=== PATIENT | male | born 1985 | race Caucasian/White ===

== ENCOUNTER 2022-09-06 12:29 | Emergency (ER) | payer OTHER, SELFPAY ==
[2022-09-06 13:05] VITALS: BP 139/85; PULSE 95; RESP 18; O2SAT 96
--- NOTE | 2022-09-06 13:53 | ED_ITS ---
HISTORY OF PRESENT ILLNESS Grey is a 37-year-old male coming in with complaint of some chest tightness. ?He was getting in the shower about 10:45 a.m. this morning and was going to go golfing. ?He had onset of sudden dizziness, nausea, and his Apple watch alerted him to the fact that his heart rate was 140s and went quickly to the 40s shortly after that. ?He developed a headache with that. ?He has ongoing left chest tightness and some left shoulder pain. ?When it first happened, he had more severe pain in the left shoulder blade area. ?He notes he has been having chest pain for a while, but it would be quick and go away. ?He notes his Apple watch alerted him to a few weeks ago when his heart rate resting was 159. ?He has no prior history of any cardiac or respiratory issues. ?He is smoking. ?He quit drinking about 6 months ago. ?He states there were not really any issues, but is planning on getting and having kids and feels that he just does not have time for it. ?He has a family history of a grandfather with a pacemaker later in life. ?He is not aware of anyone with any aneurysm, CVA or WA. ALLERGIES No known drug allergies. MEDICATIONS Adderall 15 mg daily. The patient did take 2 Luanne Aspirin this morning, full strength, when this started to happen. PAST HISTORY Significant for adult ADHD, history of kidney stones. REVIEW OF SYSTEM Did have some nausea, but unless noted above, otherwise negative for HEENT, pulmonary, cardiovascular, GI, , musculoskeletal, and psychiatric. PHYSICAL EXAM VITAL SIGNS: ?Blood pressure 139/85, pulse ox 96% on room air. ? GENERAL: ?Alert, interactive, no apparent distress. ? HEENT: ?Pupils equal, round, reactive to light. ?Sclerae clear. ?Extraocular muscles intact. ?Face atraumatic. ?Able to speak in complete sentences, no hoarseness. NECK: ?Supple. ?No cervical adenopathy. ?No thyromegaly, masses, or nodules. LUNGS: ?Clear, good air entry. ?No wheezing or crackles. CV: ?Regular rate and rhythm. ?No murmur. ?Normal S1, S2. ?No S3, S4. ?No chest wall tenderness. ABDOMEN: ?Soft. ?No rebound or guarding. ?No organomegaly. ? EXTREMITIES: ?No lower extremity edema. TEST RESULTS EKG on arrival is showing normal sinus rhythm, early repolarization, QT corrected 422 milliseconds. ?No ischemic change. EMERGENCY ROOM COURSE He will be on cardiac monitoring and pulse oximetry for ongoing monitoring for arrhythmia and potential ischemic change here. ?We will get a portable chest x- ray. ?We will get basic labs for cardiac, CBC, comprehensive metabolic panel and D-dimer. ?It certainly sounds with his Apple watch that he may be having some tachycardic-type rhythm disturbances but have reviewed with him that the monitoring on the watches is certainly not 100%. ?If we are not finding anything here today in looking at cardiopulmonary, possible thromboembolic disease such as PE, we will have suggestions for outpatient monitoring for ongoing evaluation of possible arrhythmia. ?He does understand that. ?He is currently hemodynamically stable. Dictated Date: 09/06/2022 13:53:14 CDT Internal Job ID: [id number] ADDENDUM Recheck on patient at 3:09 p.m. reveals he still has not had his portable chest x-ray due to the back up in the ER. ?He understands that it will happen. ?I have reviewed with him that his initial troponin is negative. ?We will get his second one and this one will be approximately a little over 4 hours after the onset of his symptoms. ?We will repeat EKG is well. LABS Both point of care troponins are normal, CBC, comprehensive metabolic panel, and D-dimer are normal. Repeat EKG timed 3:09 p.m. shows normal sinus rhythm, early repolarization, 80 beats per minute, QT corrected 424 milliseconds. ?No ischemic change. The patient did tell me that his mom revealed that 2 of his sisters have POTS. ?That certainly is a possibility, no evidence of arrhythmia or orthostatic hypotension here. ?He does note occasionally at home he has had problems standing up and feeling dizzy. ?At this time he is safe for discharge to home with further outpatient evaluation and followup. ? ASSESSMENT A 37-year-old male with episode of elevated heart rate and some chest heaviness. PLAN Would have him follow up with his primary care provider, have a Holter or ZIO patch placed for further evaluation of potential arrhythmia. ?May need to see Cardiology if this is potentially related to his sister's diagnoses of POTS. ?At this time, he is stable. If recurrent or concerning symptoms, seek re- evaluation. Dictated Date: 09/06/2022 15:57:52 CDT Internal Job ID: [id number]
[2022-09-06 14:52] LABS: Hematocrit 49.2 % (37.0-53.0); Hemoglobin* 16.8 gm/dL (13.5-17.5); Mean Corpuscular HGB Conc 34 gm/dL (32-36); Mean Corpuscular Hemoglobin 31 pg (26-34); Mean Corpuscular Volume 90 fL (80-100); Red Blood Count 5.44 m/uL (4.30-5.90); White Blood Count* 10.16 K/uL (4.50-11.00)
[2022-09-06 14:53] LABS: Basophils Percent Auto 0.3 % (0.0-3.0); Eosinophils Percent Auto 0.9 % (0.0-7.0); Immature Granulocytes Pct Auto 0.2 %; Lymphocytes Percent Auto 21.9 % (20-44); Monocytes Percent Auto 5.9 % (0.0-11.0); Neutrophils Percent Auto 70.8 % (42.0-72.0); Platelet Count* 226 K/uL (140-440); Slide Review Reflex No
[2022-09-06 14:55] LABS: Potassium* 3.7 mmol/L (3.6-5.1); Sodium* 137 mmol/L (135-149)
[2022-09-06 14:56] LABS: Blood Urea Nitrogen* 16 mg/dL (5-24); Calcium* 9.9 mg/dL (8.4-10.6); Carbon Dioxide* 24 mmol/L (20-32); Chloride* 105 mmol/L (96-114); Creatinine* 0.8 mg/dL (0.5-1.5); Estimated Glomerular Filt Rate 117 ml/min; Glucose* 102 mg/dL (60-115); Total Protein* 7.4 g/dL (6.0-8.3)
[2022-09-06 14:57] LABS: Alanine Aminotransferase* 37 U/L (4-50); Albumin* 4.7 g/dL (3.3-5.0); Alkaline Phosphatase* 60 U/L (40-150); Aspartate Amino Transferase* 31 U/L (12-35); Bilirubin Total* 0.5 mg/dL (0.1-1.5)
[2022-09-06 15:10] VITALS: BP 134/94; PULSE 90; RESP 13; O2SAT 96
[2022-09-06 15:15] LABS: D Dimer Quantitative* < 0.27 ug/ml (0.00-0.50)
--- NOTE | 2022-09-06 15:55 | CRLHL7_ITS ---
For Patients: As a result of the Century Cures Act, medical imaging exams and procedure reports are released immediately into your electronic medical record. You may view this report before your referring provider. If you have questions, please contact your health care provider. INDICATION: Chest pain. TECHNIQUE: Chest 1 views. COMPARISON: None. FINDINGS: Cardiovasculature and mediastinum: Heart size and vasculature are normal in caliber and appearance. Lungs and pleural spaces: Lungs are clear. No sign of infiltrate or mass. No sign of pleural effusion. No pneumothorax. Bones and soft tissues: No significant findings. IMPRESSION: No acute or significant findings. Dictated by Richar Joel MD @ 09/06/2022 4:44:18 PM (Electronically Signed)
[2022-09-27 15:46] LABS: Troponin, Point-of-Care* 0.01 ng/ml (0.01-0.04)
== END 2022-09-06 16:27 | disposition home or self-care (01) ==
LOC: ED 14:57
PROVIDERS: Emergency Provider Family Medicine
DX: R07.9 Chest pain, unspecified (principal); R00.0 Tachycardia, unspecified
CPT/HCPCS: 36415; 71045; 80048; 80053; 84484; 85025; 85379; 93005; 99284

== ENCOUNTER 2022-09-22 09:28 | Outpatient (CLI) | payer OTHER, SELFPAY | END 2022-09-22 09:29 | disposition home or self-care (01) | LOC: NFLDREF 09-23 17:43 | PROVIDERS: PCP Physician Assistant Medical; Referring Provider Physician Assistant Medical; Visit Provider Physician Assistant Medical | DX: F41.9 Anxiety disorder, unspecified (principal) | CPT/HCPCS: 84443 ==

== ENCOUNTER 2022-10-19 20:57 | Outpatient (CLI) | payer OTHER, SELFPAY ==
--- NOTE | 2022-10-26 10:29 | W.PM.SLEEP ---
Sleep Study Details Details Interpreting Provider: Aide Date of Sleep Study: 10/19/22 Sleep Study Details: STUDY TYPE:? Hospital-based without CPAP titration ? BMI:? 28.3 ORDERING PROVIDER:Adelaida Gonzalez INDICATION:? Concerns about sleep apnea ? SLEEP SUMMARY:? Total sleep time 221.5 minutes, efficiency 61, arousal index 20.9 RESPIRATORY SUMMARY:? Mean oxygen awake 93 asleep 93 minimum 88 AHI 2.4, RDI 8.9 supine AHI 4.4, supine RDI 14.1, supine REM AHI 0 Nonsupine AHI 0 nonsupine RDI is 2.4 PERIODIC LIMB MOVEMENTS OF SLEEP:? None were noted CARDIAC:? Awake 81 asleep 78, no arrhythmias noted IMPRESSION:? The overall AHI is within normal limits but the RDI is elevated 8.9. This could be considered mild obstructive sleep apnea with significant supine position dependency. RECOMMENDATION: If the patient is symptomatic treatment options could consist of avoidance of supine sleep, AutoSet CPAP, or dental appliance.
== END 2022-10-19 20:58 | disposition home or self-care (01) ==
LOC: SLEEP 20:58
PROVIDERS: PCP Physician Assistant Medical; Visit Provider Physician Assistant Medical
DX: G47.33 Obstructive sleep apnea (adult) (pediatric) (principal)
CPT/HCPCS: 95810; A9270

== ENCOUNTER 2023-03-20 18:51 | Emergency (ER) | payer OTHER, SELFPAY ==
[2023-03-20 18:54] VITALS: BP 111/75; PULSE 108; RESP 16; TEMP 36.1; O2SAT 95; BMI 29.0
--- NOTE | 2023-03-20 18:58 | ED_ITS ---
HPI - General Adult General Chief complaint: Head Injury/Pain Stated complaint: hit his head, throwing up Time Seen by Provider: 03/20/23 18:59 History of Present Illness HPI narrative: Underneath overhanging microwave installing microwave, microwave fell onto his head, landed on L temporal side of head. Pt has been nauseous, blurry vision, head pain, both of pt's ears are ringing. 38-year-old man presenting to the emergency department complaint a headache in repeated vomiting. Has sustained head trauma. He was working with a microwave, installing and noted that it was on some images was underneath a trying to figure out what was going on why was hanging up when it fell and smashed his head the left temporoparietal area against the wall. There was no loss of consciousness. He has been nauseated has vomited nausea is little bit less. Vision is entirely clear. Ears were ringing. Head hurts where he was struck. No neck or back pain. Does report history of concussions. Ask if you would like some treatment for his headache and initially unsure but then says that would be nice. No discoordination but has felt some sense of dizziness or lightheadedness. Related Data Home Medications Medication Instructions Recorded Confirmed dextroamphetamine-amphetamine ER 1 cap PO QAM 09/06/22 11/02/22 15 mg 24hr capsule,extend release Allergies Allergy/AdvReac Type Severity Reaction Status Date / Time No Known Allergies Allergy Verified 11/02/22 13:53 Review of Systems Status of ROS: Reports: 6 or more systems reviewed and unremarkable except as noted in History and below PFSH [facility] Medical History History of kidney stones ?Z87.442 - Personal history of urinary calculi (ICD-10) Surgical History History of lithotripsy ?Z98.890 - Other specified postprocedural states (ICD-10) History of cholecystectomy ?Z90.49 - Acquired absence of other specified parts of digestive tract (ICD- 10) History of surgery ?Z98.890 - Other specified postprocedural states (ICD-10) Social History Smoking Status: Current every day smoker What tobacco products do you use: cigarettes How often do you have a drink containing alcohol: never AUDIT-C Alcohol total score: 0 Non-prescribed substance use: denies use Exam Narrative: Exam Narrative: Pleasant. Seems a little tired. Speaking clearly, slowly. Timbre sounds tena ested. Cranial nerves 2-12 are intact. Neck is supple nontender. Lungs are clear. Back nontender. Heart in elevated rate but regular rhythm. Head is with full fullness over the parietal temporal area. I think I see very little petechiae. No deformity otherwise appreciated. No fluid in external ear canals. Oropharynx without acute abnormality. Const: Vital Signs, click to edit/add: Vital Signs - 24 hr 03/20/23 18:54 03/20/23 19:21 03/20/23 20:31 Temperature 97.0 F L 98.2 F 98.2 F Pulse Rate [Pulse Oximeter] 108 H Respiratory Rate 16 Blood Pressure [Ri ght Upper Arm] 111/75 Pulse Oximetry 95 Oxygen Delivery Me thod Room Air 03/20/23 20:49 03/20/23 21:05 Temperature 98.2 F 98.2 F Pulse Rate [Pulse Oximeter] 89 89 Respiratory Rate 16 16 Blood Pressure [Ri ght Upper Arm] 115/74 115/74 Pulse Oximetry 95 Oxygen Delivery Me thod Room Air Documenting provider has reviewed patient's vital signs: yes Course Vital Signs Vital signs: Initial Vital Signs Temperature 97.0 F L 03/20/23 18:54 Temperature Source Temporal Artery Scan 03/20/23 18:54 Pulse Rate 108 H 03/20/23 18:54 Respiratory Rate 16 03/20/23 18:54 Blood Pressure 111/75 03/20/23 18:54 Blood Pressure Mean 87 03/20/23 18:54 Blood Pressure Position Sitting 03/20/23 18:54 Pulse Oximetry 95 03/20/23 18:54 Oxygen Delivery Method Room Air 03/20/23 18:54 Vital Signs Temperature 97.0 F L 03/20/23 18:54 Pulse Rate 108 H 03/20/23 18:54 Respiratory Rate 16 03/20/23 18:54 Blood Pressure 111/75 03/20/23 18:54 Pulse Oximetry 95 03/20/23 18:54 Oxygen Delivery Method Room Air 03/20/23 18:54 Temperature 98.2 F 03/20/23 21:05 Pulse Rate 89 03/20/23 21:05 Respiratory Rate 16 03/20/23 21:05 Blood Pressure 115/74 03/20/23 21:05 Pulse Oximetry 95 03/20/23 20:49 Oxygen Delivery Method Room Air 03/20/23 20:49 Medications Administered Medications: Discontinued Medications Generic Name Dose Route Start Last Admin Trade Name Freq PRN Reason Stop Dose Admin Sodium Chloride 1,000 mls @ 1,000 mls/hr 03/20/23 19:07 03/20/23 20:00 0.9 % Sodium Chloride 1000 Ml IV 03/20/23 20:06 Infused .Q1H ONE Infusion Ketorolac Tromethamine 30 mg 03/20/23 19:07 03/20/23 19:21 Ketorolac 30 Mg/Ml Inj IVP 03/20/23 19:08 30 mg ONCE ONE Administration Ondansetron HCl 4 mg 03/20/23 19:07 03/20/23 19:15 Ondansetron 2 Mg/Ml Inj IVP 03/20/23 19:08 4 mg ONCE ONE Administration Medical Decision Making MDM Narrative Medical decision making narrative: I think most likely this is a closed head injury limited to that with possible concussion. He would like treatment for his headache. While here I think it would be prudent to scan his head for any intracranial or bony abnormality. IVs established. Given ketorolac and Zofran. Head CT reviewed by me looks to be unremarkable for acute abnormality. Radiology over-read as below INDICATION: Closed head injury. COMPARISON: None. TECHNIQUE: CT of the head without IV contrast. Coronal and sagittal reconstructions. FINDINGS: No intracranial hemorrhage, mass effect, or evidence of acute infarct. No midline shift. No abnormal extra-axial fluid collections. Normal caliber ventricular system. Orbits and extraocular muscles are symmetric. Polyps or mucous retention cysts in the bilateral maxillary sinuses. The paranasal sinuses and mastoid air cells are otherwise clear. No acute fracture identified. Incidentally noted occipital bone spur. Soft tissues are unremarkable. IMPRESSION: No acute intracranial findings. Is ultimately requesting departure. On reassessment is feeling markedly improved. See patient discharge plan Medical Records Medical records reviewed: Yes I reviewed the patient's medical records Discharge Plan Discharge Clinical Impression: Closed head injury, Headache Patient Disposition: Home w/ Parent or Adult Condition: Improved Additional Instructions: Happy you're feeling better. I do have some concerns that you have sustained a concussion. Going forward, signs or symptoms of a concussion might be nausea or headache upon exertion which can also be an indication to back off that level of activity and reassess in a week.? Concussion can also be represented by smoldering nausea or smoldering headache, difficulty with concentration, mood lability, general somnolence, sense of persistent fog or dizziness/lightheadedness.? If these symptoms are becoming apparent and continuing beyond 7-10 days, be re-evaluated for further recommendations. Prescriptions: No Action dextroamphetamine-amphetamine 15 mg capsule,extended release 24hr 1 cap PO QAM Follow Up/Referrals: Ligia Gonzalez PA-C [Primary Care Provider] - Stand Alone Forms: [facility] Info Instructions
--- NOTE | 2023-03-20 19:07 | CRLHL7_ITS ---
For Patients: As a result of the Cures Act, medical imaging exams and procedure reports are released immediately into your electronic medical record. You may view this report before your referring provider. If you have questions, please contact your health care provider. INDICATION: Closed head injury. COMPARISON: None. TECHNIQUE: CT of the head without IV contrast. Coronal and sagittal reconstructions. FINDINGS: No intracranial hemorrhage, mass effect, or evidence of acute infarct. No midline shift. No abnormal extra-axial fluid collections. Normal caliber ventricular system. Orbits and extraocular muscles are symmetric. Polyps or mucous retention cysts in the bilateral maxillary sinuses. The paranasal sinuses and mastoid air cells are otherwise clear. No acute fracture identified. Incidentally noted occipital bone spur. Soft tissues are unremarkable. IMPRESSION: No acute intracranial findings. Please note that all CT scans at this facility use dose modulation, iterative reconstruction, and/or weight-based dosing when appropriate to reduce radiation dose to as low as reasonably achievable. Dictated by Shelley Hauser MD @ 03/20/2023 8:22:01 PM (Electronically Signed)
[2023-03-20] MEDS: ONDANSETRON 2 MG/ML inj 4 MG IVP (19:15)
[2023-03-20] MEDS: 0.9 % SODIUM CHLORIDE 1000 ml 1,000 ML IV (19:15)
[2023-03-20 19:21] VITALS: TEMP 36.8
[2023-03-20] MEDS: KETOROLAC 30 MG/ML inj IVP (19:21)
[2023-03-20 20:31] VITALS: TEMP 36.8
[2023-03-20 20:49] VITALS: BP 115/74; PULSE 89; RESP 16; TEMP 36.8; O2SAT 95
[2023-03-20 21:05] VITALS: BP 115/74; PULSE 89; RESP 16; TEMP 36.8
== END 2023-03-20 21:06 | disposition home or self-care (01) ==
PROVIDERS: Emergency Provider Family Medicine; PCP Physician Assistant Medical
DX: S09.90XA Unspecified injury of head, initial encounter (principal); W20.8XXA Other cause of strike by thrown, projected or falling object, initial encounter
CPT/HCPCS: 70450; 96374; 96375; 99284; J1885; J2405; J7030

== ENCOUNTER 2025-02-05 09:30 | Outpatient (CLI) | payer BC, SELFPAY | END 2025-02-05 09:31 | disposition home or self-care (01) | LOC: NFLDREF 02-11 15:57 | PROVIDERS: PCP Physician Assistant Medical; Visit Provider Physician Assistant Medical | DX: Z00.00 Encounter for general adult medical examination without abnormal findings (principal); Z13.9 Encounter for screening, unspecified; R53.83 Other fatigue | CPT/HCPCS: 80053; 80061; 82306; 82607; 82728; 84403; 84443 ==